=== PATIENT | female | born 2000 | race Two or more races ===

== ENCOUNTER 2024-09-22 13:08 | Emergency (ER) | payer OTHER ==
[~2024-09-22] VITALS: Ht 162.6 cm; Wt 52.2 kg
[2024-09-22] MEDS ORDERED: FAMOtidine 10 MG/ML (4ML VIAL) IV PUSH ONE (14:00)
[2024-09-22] MEDS ORDERED: ACETAMINOPHEN 325 MG TABLET PO ONE (14:00)
[2024-09-22] MEDS ORDERED: GUAIFENESIN 200 MG/10 ML BLIST.PACK PO ONE (14:00)
[2024-09-22 15:19] LABS: HEMATOCRIT 37.2 % (36.0-45.00); HEMOGLOBIN 12.5 g/dL (12.0-15.00); MEAN CELL VOLUME 92.5 fL (80.00-100.00); MEAN CORPUSCULAR HEMOGLOBIN 31.1 pg (27.00-32.0); MEAN CORPUSCULAR HGB CONC 33.6 g/dl (32.0-36.0); PLATELET COUNT 201 K/uL (150-450); RED BLOOD COUNT 4.02 M/uL (4.00-6.00); RED CELL DISTRIBUTION WIDTH 13.5 % (11.5-14.5)
== END 2024-09-22 17:28 | disposition home or self-care (01) ==
LOC: ER 13:10
PROVIDERS: General Practice
DX: R53.81 Other malaise (principal); J10.1 Influenza due to other identified influenza virus with other respiratory manifestations; Z20.822 Contact with and (suspected) exposure to COVID-19